=== PATIENT | female | born 1945 | race Caucasian/White ===

== ENCOUNTER 2024-04-08 17:55 | Observation (INO) | payer MEDICARE, SELFPAY ==
[2024-04-08 17:56] VITALS: BP 152/88; PULSE 99; RESP 18; TEMP 37.1; O2SAT 99; BMI 30.9
--- NOTE | 2024-04-08 18:05 | CT_ITS ---
PROCEDURE INFORMATION: Exam: CT Head Without Contrast Exam date and time: 04/08/2024 6:35 PM Age: 78 years old Clinical indication: Altered mental status/memory loss; Additional info: AMS TECHNIQUE: Imaging protocol: Computed tomography of the head without contrast. Radiation optimization: All CT scans at this facility use at least one of these dose optimization techniques: automated exposure control; mA and/or kV adjustment per patient size (includes targeted exams where dose is matched to clinical indication); or iterative reconstruction. COMPARISON: No relevant prior studies available. FINDINGS: Brain: Periventricular white matter tract changes demonstrated. Mild-moderate prominence of the cortical sulci. Cerebral ventricles: No ventriculomegaly. Paranasal sinuses: Visualized sinuses are unremarkable. No fluid levels. Mastoid air cells: Visualized mastoid air cells are well aerated. Bones: Unremarkable. No acute fracture. Soft tissues: Unremarkable. IMPRESSION: No evidence of acute intracranial abnormality.
--- NOTE | 2024-04-08 18:05 | XR_ITS ---
PROCEDURE INFORMATION: Exam: XR Chest Exam date and time: 04/08/2024 6:32 PM Age: 78 years old Clinical indication: Other: AMS TECHNIQUE: Imaging protocol: Radiologic exam of the chest. Views: 1 view. COMPARISON: No relevant prior studies available. FINDINGS: Lungs: Unremarkable. No consolidation. Pleural spaces: Indistinctness of the left costophrenic angle. A small pleural effusion is suggested. Heart/Mediastinum: Mild cardiac enlargement. Vasculature: Ectasia of the aortic arch Bones/joints: Unremarkable. Soft tissues: Postoperative changes left axilla. IMPRESSION: Indistinctness of the left costophrenic angle. A small pleural effusion is suggested.
--- NOTE | 2024-04-08 18:14 | ECG_ITS ---
APPROVED REPORT Exam: Resting ECG HR:95 bpm ECG Measurements Heart Rate 95 AXES FL 171 P 50 QRSd 90 QRS -69 QT 325 T 29 QTc 377 Conclusion SINUS RHYTHM LEFT ANTERIOR FASCICULAR BLOCK POSSIBLE ANTERIOR MYOCARDIAL INFARCTION , OF INDETERMINATE AGE [30 ms Q WAVE IN V3/V4, OR R < 0.2 mV IN V4] Electronically signed by : KARYN GONZALEZ, 04/08/2024 18:47:03
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
--- NOTE | 2024-04-08 18:40 | PC.NURSE ---
Pt returned to room from RAD
[2024-04-08 18:43] LABS: Chloride 110 mmol/L (98-107); Potassium 4.3 mmoL/L (3.5-5.1); Sodium 139 mmol/L (136-145)
[2024-04-08 18:46] LABS: Alanine Aminotransferase 21 U/L (12-78); Albumin/Globulin Ratio 1.6 (1.1-1.8); Alkaline Phosphatase 137 U/L (38-126); Anion Gap 9.3 mEq/L (5-15); Aspartate Amino Transferase 27 U/L (14-36); Bilirubin,Total 0.8 mg/dl (0.2-1.3); Blood Urea Nitrogen 33 mg/dl (7-17); Carbon Dioxide 24 mmol/L (22.0-30.0); Creatinine Clearance Estimated 34 mL/min (50-200); Estimated Glomerular Filt Rate 27 ml/min (>60); GFR (African American) 33 ML/MIN (>60); Globulin 2.5 g/dL (1.3-3.2); Total Protein,Serum 6.5 g/dl (6.3-8.2)
[2024-04-08 18:47] LABS: Calcium 9.3 mg/dl (8.4-10.2); Glucose 142 mg/dl (74-100)
--- NOTE | 2024-04-08 18:51 | PC.NURSE ---
Attempted to obtain urine sample from pt. Pt missed hat while attempting to give urine. Pt aware that we need to obtain a sample when she is able to go again.
[2024-04-08 19:05] LABS: Basophils % 0.6 % (0.1-2.0); Eosinophils # 0.1 K/mm3 (0.0-0.4); Eosinophils % 1.8 % (0.1-12.0); Hematocrit 38.9 % (37.0-47.0); Hemoglobin 11.8 g/dL (12.2-16.2); Lymphocytes # 0.9 K/mm3 (0.7-4.5); Lymphocytes % 15.1 % (10-50); Mean Corpuscular HGB Conc 30.4 g/dL (31.8-35.4); Mean Corpuscular Hemoglobin 31.2 pg (27.0-31.2); Mean Corpuscular Volume 102.8 fl (81-99); Monocytes # 0.5 K/mm3 (0.1-1.0); Monocytes % 8.2 % (1.7-9.3); Neutrophils # 4.6 K/mm3 (1.8-7.8); Neutrophils % 74.3 % (37.0-80.0); Platelet Count 219 K/mm3 (142-424); Red Blood Count 3.79 M/mm3 (4.20-5.40); Red Cell Distribution Width 14.4 % (11.5-17.5); White Blood Count 6.2 K/mm3 (4.8-10.8)
--- NOTE | 2024-04-08 19:08 | PC.NURSE ---
pt blood glucose obtained 126. warm blanket given
[2024-04-08 20:16] LABS: Appearance,Urine CLEAR (Clear); Bilirubin,Urine Negative (Negative); Blood, Urine Negative (Negative); Color,Urine YELLOW (Yellow); Glucose,Urine (UA) Negative (Negative); Ketones,Urine Negative (Negative); Leukocyte Esterase,Urine Negative (Negative); Microscopic, Urine URINE MICROSCOPIC (MICROSCOPIC); Nitrate,Urine POSITIVE (Negative); Protein,Urine Negative (Negative); Specific Gravity, Urine 1.025 (1.005-1.030); Urobilinogen,Urine 0.2 EU/dl (0.2)
[2024-04-08] MEDS: CEFTRIAXONE SODIUM 1 GM in 0.9 % SODIUM CHLORIDE 50 ML IV (20:26)
[2024-04-08 20:28] LABS: Bacteria,Urine 3+ /lpf; RBC,Urine Occasional #/hpf (0-3); WBC,Urine 20-50 #/hpf (0-3)
--- NOTE | 2024-04-08 20:31 | PC.NURSE ---
supervisor winding department notified of admission.
--- NOTE | 2024-04-08 20:36 | PC.NURSE ---
attempted to call report to Mili, she stated she would call me back.
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
[2024-04-08 21:01] VITALS: BP 161/73; PULSE 96; RESP 18; TEMP 36.6; O2SAT 96
--- NOTE | 2024-04-08 21:05 | PC.NURSE ---
Patient arrived to floor via wheelchair from ED at 21:04.
[2024-04-08 21:29] VITALS: BMI 29.2
[2024-04-08 21:30] VITALS: BP 161/73; PULSE 98; RESP 18; TEMP 36.7; O2SAT 96
[2024-04-08] MEDS: 0.9 % SODIUM CHLORIDE 1000ML 1,000 ML 50 ML IV (21:38)
[2024-04-08 22:21] LABS: POC Glucose,Bedside 108 (70-110)
[2024-04-09] VITALS: BP 160/86; PULSE 87; RESP 16; TEMP 36.6; O2SAT 98
[2024-04-09] MEDS: ACETAMINOPHEN 325MG TAB 650 MG PO (03:52)
[2024-04-09 04:00] VITALS: BMI 29.7
--- NOTE | 2024-04-09 04:35 | PC.NURSE ---
Pt has rested on and off through the night after being admitted to the floor. She has remained confused and is oriented X 1 only. Reviewed chart and assembly instructions writer unable to locate name and number of her nephew who is reportedly her POA. Pt was able to ambulate to BR with assist of 1. Pt has wound to upper mid back, appearing to be a unstagable pressure sore. Area left open to air for now and encouraged pt to lie on her side.
[2024-04-09 06:01] LABS: POC Glucose,Bedside 113 (70-110)
[2024-04-09 06:46] LABS: Alanine Aminotransferase 16 U/L (12-78); Albumin Level 3.2 g/dl (3.5-5.0); Albumin/Globulin Ratio 1.3 (1.1-1.8); Alkaline Phosphatase 112 U/L (38-126); Anion Gap 8.3 mEq/L (5-15); Aspartate Amino Transferase 24 U/L (14-36); Bilirubin,Total 0.6 mg/dl (0.2-1.3); Blood Urea Nitrogen 29 mg/dl (7-17); Calcium 8.9 mg/dl (8.4-10.2); Carbon Dioxide 21 mmol/L (22.0-30.0); Chloride 111 mmol/L (98-107); Creatinine Clearance Estimated 39 mL/min (50-200); Estimated Glomerular Filt Rate 34 ml/min (>60); GFR (African American) 41 ML/MIN (>60); Globulin 2.5 g/dL (1.3-3.2); Glucose 112 mg/dl (74-100); Magnesium 1.6 mg/dl (1.6-2.3); Potassium 4.3 mmoL/L (3.5-5.1); Sodium 136 mmol/L (136-145); Total Protein,Serum 5.7 g/dl (6.3-8.2)
[2024-04-09 06:54] LABS: Basophils % 0.3 % (0.1-2.0); Eosinophils # 0.1 K/mm3 (0.0-0.4); Eosinophils % 2.8 % (0.1-12.0); Hematocrit 33.9 % (37.0-47.0); Mean Corpuscular HGB Conc 31.2 g/dL (31.8-35.4); Mean Corpuscular Hemoglobin 31.4 pg (27.0-31.2); Mean Corpuscular Volume 100.6 fl (81-99); Mean Platelet Volume 9.1 fl (7.4-10.4); Monocytes # 0.4 K/mm3 (0.1-1.0); Monocytes % 8.9 % (1.7-9.3); Neutrophils # 3.2 K/mm3 (1.8-7.8); Neutrophils % 66.9 % (37.0-80.0); Platelet Count 199 K/mm3 (142-424); Red Blood Count 3.37 M/mm3 (4.20-5.40); Red Cell Distribution Width 14.5 % (11.5-17.5); White Blood Count 4.8 K/mm3 (4.8-10.8)
[2024-04-09 07:15] LABS: Hemoglobin 10.4 g/dL (12.2-16.2)
[2024-04-09 08:00] VITALS: BP 122/44; PULSE 71; RESP 16; TEMP 36.6; O2SAT 94
[2024-04-09 08:15] LABS: Hemoglobin A1C 6.1 % (4.0-6.0)
[2024-04-09] MEDS: PANTOPRAZOLE 40MG TABLET 40 MG PO ×2 (09:33→20:41)
[2024-04-09] MEDS: ENOXAPARIN 40MG/0.4ML SYRINGE 40 MG SQ (09:33)
--- NOTE | 2024-04-09 09:41 | SW/DCPLANNER ---
Addendum entered by Jenna Nelson RN 04/10/24 12:38: Patient has authorization for [facility]. She will discharge today. Addendum entered by [facility] 04/09/24 15:07: Patient is alert and oriented x 4 at this time: no need for APS referral due to being alert and oriented. [facility] is willing to accept patient pending precert. Per Halle precert will be started today. Addendum entered by [facility] 04/09/24 14:28: Lynsey w/ [facility] stated that she is willing to add patient to their waiting list at this time. [facility] and [facility] are still reviewing patient information. Information has also been faxed to [facility]. Addendum entered by [facility] 04/09/24 11:29: Per Lucinda w/ [facility] patient does have an open case out of [facility] w/ Delia Bianchi. Lucinda will reach out to Delia and have her contact me regarding situation. Addendum entered by [facility] 04/09/24 11:22: Debo w/ [facility] stated no beds available, [facility] reviewed and denied, [facility] is currently reviewing. I have also faxed information to [facility] and [facility]. Patient and brother are agreeable w/ this plan. I have also called Lucinda w/ [facility] regarding situation: currently waiting on a returned phone call. Original Note: I spoke w/ patient regarding plans once medically stable for discharge. PT/OT evaluated patient and recommended SNF level of care vs home health. Patient stated that she resides at home alone and is able to complete ADL's. Patient stated that her friend Eladio helps w/ grocery shopping and other needs. Patient is alert and oriented at this time able to answer all questions appropriately. Patient is agreeable to placement and prefers the following facilities: [facility], [facility] or [facility]. I will follow up w/ facilities and fax patient information. Discharge date is unknown at this time.
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
[2024-04-09 10:31] LABS: POC Glucose,Bedside 125 (70-110)
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
--- NOTE | 2024-04-09 15:52 | P.PN_ITS ---
Subjective *Date: 04/09/24 *Time: 15:58 Interval history: The patient is seen and examined at bedside today. I am accompanied by her nurse Irvin. Nursing staff report that she remains afebrile with stable vital signs and saturating appropriately on room air. Her blood pressure has improved from admission. She is tolerating her antibiotic therapy with no adverse events. Exam Data for Last 24 hours Vital signs and Labs for Last 24 Hours: Temp Pulse Resp BP Pulse Ox O2 Del Method 98 F 71 16 122/44 L 94 L Room Air 04/09/24 08:00 04/09/24 08:00 04/09/24 08:00 04/09/24 08:00 04/09/24 08:00 04/09/24 13:36 Laboratory Results - last 24 hr 04/08/24 18:25: WBC 6.2, RBC 3.79 L, Hgb 11.8 L, Hct 38.9, MCV 102.8 H, MCH 31.2, MCHC 30.4 L, RDW 14.4, Plt Count 219, MPV 9.0, Neut % (Auto) 74.3, Lymph % (Auto) 15.1, Schley % (Auto) 8.2, Eos % (Auto) 1.8, Baso % (Auto) 0.6, Neut # (Auto) 4.6, Lymph # (Auto) 0.9, Schley # (Auto) 0.5, Eos # (Auto) 0.1, Baso # (Auto) 0.0, Sodium 139, Potassium 4.3, Chloride 110 H, Carbon Dioxide 24, Anion Gap 9.3, BUN 33 H, Creatinine 1.80 H, Estimated Creat Clear 34, Estimated GFR 27 L, Est GFR ( Amer) 33 L, Glucose 142 H, Calcium 9.3, Total Bilirubin 0.8, AST 27, ALT 21, Alkaline Phosphatase 137 H, Total Protein 6.5, Albumin 4.0, Globulin 2.5, Albumin/Globulin Ratio 1.6 04/08/24 20:09: Urine Color Yellow, Urine Appearance Clear, Urine pH 6.0, Ur Specific [place] 1.025, Urine Protein Negative, Urine Glucose (UA) Negative, Urine Ketones Negative, Urine Blood Negative, Urine Nitrate Positive, Urine Bilirubin Negative, Urine Urobilinogen 0.2, Ur Leukocyte Esterase Negative, Urine RBC Occasional, Urine WBC 20-50, Ur Squamous Epith Cells 10-20, Urine Bacteria 3+ 04/08/24 22:11: POC Glucose 108 04/09/24 05:47: POC Glucose 113 H 04/09/24 06:03: WBC 4.8, RBC 3.37 L, Hgb 10.4 L D, Hct 33.9 L, MCV 100.6 H, MCH 31.4 H, MCHC 31.2 L, RDW 14.5, Plt Count 199, MPV 9.1, Neut % (Auto) 66.9, Lymph % (Auto) 21.0, Schley % (Auto) 8.9, Eos % (Auto) 2.8, Baso % (Auto) 0.3, Neut # (Auto) 3.2, Lymph # (Auto) 1.0, Schley # (Auto) 0.4, Eos # (Auto) 0.1, Baso # (Auto) 0.0, Sodium 136, Potassium 4.3, Chloride 111 H, Carbon Dioxide 21 L, Anion Gap 8.3, BUN 29 H, Creatinine 1.50 H, Estimated Creat Clear 39, Estimated GFR 34 L, Est GFR ( Amer) 41 L D, Glucose 112 H D, Hemoglobin A1c 6.1 H, Calcium 8.9, Magnesium 1.6, Total Bilirubin 0.6, AST 24, ALT 16, Alkaline Phosphatase 112, Total Protein 5.7 L, Albumin 3.2 L D, Globulin 2.5, Albumin/Globulin Ratio 1.3 04/09/24 10:22: POC Glucose 125 H I & O for Last 24 hours: Intake & Output 04/06/24 04/07/24 04/08/24 04/09/24 23:59 23:59 23:59 23:59 Output Total 0 / 0 0 / 0 Balance 0 / 0 0 / 0 Weight 77.7 kg 79.152 kg Microbiology Reports for the Last 24 Hours: Microbiology 04/08/24 20:09 Urine,Clean Catch Urine Culture - Preliminary Gram Negative Rods Constitutional Constitutional: no acute distress, chronically ill appearing and cooperative *Routine HEENT Exam Head: Present normocephalic and atraumatic Eye: Present EOMI and PERRL ENT: Present mucous membranes moist *Routine Neck Exam Neck: Absent JVD or lymphadenopathy *Routine Respiratory Exam Respiratory: Present CTA bilaterally, normal respiratory effort and symmetric chest movement *Routine Cardiovascular Exam Cardiovascular: Present RRR *Routine Abdominal Exam Abdominal: Present soft and normoactive bowel sounds; Absent tenderness *Routine Extremities Exam Extremities: Present full ROM and pulses intact; Absent edema *Routine Skin Exam Skin: Present wounds; Absent rash *Routine Neurological Exam Neurological: Present alert, moving all extremities and vision grossly intact; Absent oriented X3, sensory deficit, motor deficit or hearing grossly intact Routine Psychiatric Exam Psychiatric: Present cooperative Assessment and Plan *Assessment and plan (1) Acute metabolic encephalopathy: Status: Acute Category: Medical Code(s): G93.41 - Metabolic encephalopathy (2) Acute UTI: Status: Acute Category: Medical Code(s): N39.0 - Urinary tract infection, site not specified (3) Acute kidney injury: Status: Acute Category: Medical Code(s): N17.9 - Acute kidney failure, unspecified (4) Chronic kidney disease: Status: Acute Category: Medical Code(s): N18.9 - Chronic kidney disease, unspecified (5) Deep tissue injury: Status: Acute Category: Medical Code(s): T14.8XXA - Other injury of unspecified body region, initial encounter Plan This is a 78-year-old female with cognitive impairment attributed to vascular dementia with identified deterioration over several months that presented to the ED with acute infection and metabolic encephalopathy. Problems addressed as follows: Acute metabolic encephalopathy-resolved Acute UTI IV fluid resuscitation ED urinalysis reviewed Urine culture pending IV Rocephin Acute kidney injury Chronic kidney disease stage III Baseline creatinine 1.3 Gentle IV fluid resuscitation Trending electrolytes and creatinine Avoiding NSAIDs Adjusting medications for GFR Hypertension Routine blood pressure monitoring Avoiding JAELYN inhibitor therapy Beta-anahi therapy Deep tissue injury sacrum Barrier care Nutrition Wound care The patient is hospitalized day 1 with above diagnoses complicated by her memory impairment. Case management is assisting with discharge planning including transitioning to SNF. Barriers to discharge currently include ongoing UTI t herapy, identifying facility for transition of care and insurance certification process. Expected day of discharge once facility is identified and insurance certification is complete.
[2024-04-09 16:00] VITALS: BP 150/59; PULSE 79; RESP 16; TEMP 36.7; O2SAT 98
[2024-04-09 16:20] LABS: POC Glucose,Bedside 107 (70-110)
[2024-04-09] MEDS: 0.9 % SODIUM CHLORIDE 1000ML 1,000 ML 50 ML IV (18:39)
[2024-04-09 19:53] LABS: POC Glucose,Bedside 108 (70-110)
[2024-04-09 20:00] VITALS: BP 145/80; PULSE 75; RESP 20; TEMP 36.4; O2SAT 95
[2024-04-09] MEDS: ATORVASTATIN 10MG TABLET 10 MG PO (20:41)
[2024-04-09] MEDS: CEFTRIAXONE 1 GM 1 GM in 0.9 % SODIUM CHLORIDE 50 ML IV (20:41)
[2024-04-09] MEDS: CARVEDILOL 6.25MG TABLET 6.25 MG PO (20:41)
[2024-04-10 04:00] VITALS: BP 163/91; PULSE 76; RESP 18; TEMP 36.7; O2SAT 96; BMI 29.7
--- NOTE | 2024-04-10 05:35 | PC.NURSE ---
Alert to person and place. Ambulates to the restroom with 1 assist. PREM FS. Remains on room air. No complaints throughout the night. Bed alarm on. Call light in reach.
[2024-04-10 07:46] VITALS: BP 122/53; PULSE 70; RESP 16; TEMP 36.8; O2SAT 97
[2024-04-10] MEDS: CARVEDILOL 6.25MG TABLET 6.25 MG PO (08:23)
[2024-04-10] MEDS: ENOXAPARIN 40MG/0.4ML SYRINGE 40 MG SQ (08:23)
[2024-04-10 11:52] VITALS: BMI 29.7
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
--- NOTE | 2024-04-10 13:35 | PC.NURSE ---
Spoke with patient's brother Italo who can pick her up at around 15:00.
--- NOTE | 2024-04-10 14:04 | PC.NURSE ---
Report called to Halle VASQUES at [facility].
[2024-04-10 23:15] LABS: POC Glucose,Bedside 128 (70-110)
== END 2024-04-10 14:35 ==
LOC: ER 20:33 → 2ND 20:56
PROVIDERS: Nurse Practitioner Family; Admitting Provider Family Medicine; Emergency Provider Emergency Medicine; Visit Provider Family Medicine
DX: R41.82 Altered mental status, unspecified (principal); B99.9 Unspecified infectious disease; N17.9 Acute kidney failure, unspecified; N39.0 Urinary tract infection, site not specified; G93.41 Metabolic encephalopathy; M54.6 Pain in thoracic spine; I12.9 Hypertensive chronic kidney disease with stage 1 through stage 4 chronic kidney disease, or unspecified chronic kidney disease; N18.30 Chronic kidney disease, stage 3 unspecified; G89.29 Other chronic pain; L89.100 Pressure ulcer of unspecified part of back, unstageable; T14.8XXA Other injury of unspecified body region, initial encounter; E78.5 Hyperlipidemia, unspecified; E11.9 Type 2 diabetes mellitus without complications; F01.50 Vascular dementia, unspecified severity, without behavioral disturbance, psychotic disturbance, mood disturbance, and anxiety; Z79.84 Long term (current) use of oral hypoglycemic drugs
CPT/HCPCS: 36415; 70450; 71045; 80053; 81001; 82962; 83036; 83735; 85025; 87086; 87088; 93005; 97110; 97116; 97163; 97166; 97530; 99285; G0378; J0696; J1650; J7030